=== PATIENT | female | born 1965 | race Caucasian/White ===

== ENCOUNTER → 2021-03-01 09:34 | Outpatient (CLI) | payer OTHER, SELFPAY ==
--- NOTE | ~2021-03-01 | XR_ITS ---
EXAMINATION: XR wrist LT 2V, XR wrist RT 2V DATE: 03/01/2021 10:56 INDICATION: Multiple joint pain with chronic occasional sharp pain at the posterior aspect of the wri sts, right greater than left. TECHNIQUE: 1. Posteroanterior and lateral views of the left wrist were obtained. 2. Posteroanterior and lateral views of the right wrist were obtained. COMPARISON: none FINDINGS: Alignment is normal at the bilateral wrists. No fracture. 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 Remaining joint spaces are normal. No erosions to suggest an inflammatory a rthritis. Soft tissues are unremarkable. IMPRESSION: 1. 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 Reviewed, dictated and finalized at location A. IMPRESSION: 1. 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
--- NOTE | ~2021-03-01 | XR_ITS ---
EXAMINATION: XR ankle LT 2V, XR ankle RT 2V, XR foot LT 2V, XR foot RT 2V DATE: 03/01/2021 10:56 INDICATION: Multiple joint pain at the bilateral feet. TECHNIQUE: 1. Anteroposterior and lateral view of the left ankle were obtained. 2. Dorsoplantar and lateral views of the left foot were obtained. 3. Anteroposterior and lateral view of the left ankle were obtained. 4. Dorsoplantar and lateral views of the left foot were obtained. COMPARISON: None. FINDINGS: There is normal alignment at the bilateral feet and ankles. No fracture or osteochondral lesion. Mild osteoarthritis with minimal nonuniform joint space narrowing and tiny marginal osteophytes at the bi lateral first metatarsophalangeal joints. Additional mild nonuniform joint space narrowing at the dilcia ateral tibiotalar joints. Remaining joint spaces are unremarkable. No cortical erosions to suggest an inflammatory arthritis. No ankle joint effusion. The soft tissues are unremarkable. IMPRESSION: 1. 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 Otherwise un remarkable bilateral foot and ankle radiographs. Reviewed, dictated and finalized at location A. IMPRESSION: 1. Mild osteoarthritis at the bilateral tibiotalar and first metatarsophalangea l joints. Otherwise unremarkable bilateral foot and ankle radiographs. IMPRESSION: 1. Mild osteoarthritis at the bilateral tibiotalar and first metatarsophalangea l joints. Otherwise unremarkable bilateral foot and ankle radiographs. IMPRESSION: 1. Mild osteoarthritis at the bilateral tibiotalar and first metatarsophalangea l joints. Otherwise unremarkable bilateral foot and ankle radiographs.
== END ==
PROVIDERS: PCP Registered Nurse; Visit Provider Internal Medicine Rheumatology
DX: M19.071 Primary osteoarthritis, right ankle and foot (principal); M18.0 Bilateral primary osteoarthritis of first carpometacarpal joints; M19.072 Primary osteoarthritis, left ankle and foot; R53.81 Other malaise; M79.10 Myalgia, unspecified site
CPT/HCPCS: 73100; 73600; 73620